=== PATIENT | female | born 1975 | race Caucasian/White ===

== ENCOUNTER → 2020-03-26 | Outpatient (CLI) | payer BC, OTHER ==
[~2020-03-26] MED LIST: ACTOS TAB 15MG15 MG PO; ACTOS15 MG PO; ASPIRIN CHEWABL81 MG PO; B-121000 MC1 PO; CARAFATE1 GM/10 ML PO; CYTOMEL5 MCG PO; FAMOTIDINE40 MG PO; FERREX 150150 MG PO; IRON INFUSIONS IV; KLONOPIN TAB 00.5 MG PO; LINZESS PO; LINZESS72 MCG PO; LODINE CAP 300300 MG PO; MAGNESIUM500 MG PO; NAPROSYN500 MG PO; NITROSTAT0.4 MG SL; NORCO 7.5-3251 EACH PO; NORVASC2.5 MG PO; OMNICEF 300 MG300 MG PO; SYNTHROID175 MCG PO; TOPROL XL25 MG PO; TRULICITY0.75 MG/0. SQ; VIT B PO; VIT D PO; VIT D3 PO; VITAMIN B-121000 MCG PO; VITAMIN D 11000 UNIT PO; ZANTAC150 MG PO; ZANTAC300 MG PO; ZOFRAN4 MG PO; ZOFRAN8 MG PO
== END ==
LOC: MRI 15:42
DX: M50.122 Cervical disc disorder at C5-C6 level with radiculopathy (principal)
CPT/HCPCS: 72141

== ENCOUNTER → 2020-05-24 | Day surgery (SDC) | payer BC, OTHER | END | disposition home or self-care (01) | LOC: OR 11:06 | DX: K63.5 Polyp of colon (principal); K62.1 Rectal polyp; K64.0 First degree hemorrhoids; K64.4 Residual hemorrhoidal skin tags; K29.50 Unspecified chronic gastritis without bleeding; K31.7 Polyp of stomach and duodenum; K21.00 Gastro-esophageal reflux disease with esophagitis, without bleeding; K58.1 Irritable bowel syndrome with constipation; E89.0 Postprocedural hypothyroidism; E11.9 Type 2 diabetes mellitus without complications; E66.01 Morbid (severe) obesity due to excess calories; Z68.43 Body mass index [BMI] 50.0-59.9, adult; Z88.0 Allergy status to penicillin; Z88.2 Allergy status to sulfonamides; Z88.1 Allergy status to other antibiotic agents; Z79.84 Long term (current) use of oral hypoglycemic drugs; Z79.899 Other long term (current) drug therapy | CPT/HCPCS: J2405; J2704; J3010; J7040 ==

== ENCOUNTER 2020-06-09 04:35 | Emergency (ER) | payer BC, OTHER ==
[~2020-06-09 04:35] MED LIST changes: -OMNICEF 300 MG300 MG PO
[2020-06-09 05:51] LABS: HEMOGLOBIN 13.4 gm/dl (12.3-15.3); RED BLOOD COUNT 4.6 M/UL (4.00-5.10)
[2020-06-09 06:11] LABS: BUN/CREATININE RATIO 16 (0-10)
[2020-06-09] MEDS ORDERED: OMNICEF 300 MG300 MG PO (07:45)
== END 2020-06-09 08:20 | disposition home or self-care (01) ==
LOC: ER1 04:35
PROVIDERS: Emergency Medicine
DX: N39.0 Urinary tract infection, site not specified (principal); Z20.822 Contact with and (suspected) exposure to COVID-19
CPT/HCPCS: 0240U; 71046; 80053; 81001; 83690; 85025; 87086; 96374; 99284

== ENCOUNTER → 2020-06-28 | Outpatient (CLI) | payer BC, OTHER ==
[~2020-06-28] MED LIST changes: +HYDROXYCHLOROQ200 MG PO; +OMNICEF 300 MG300 MG PO
== END ==
LOC: MAMO 04-05 11:30
DX: N63.0 Unspecified lump in unspecified breast (principal)
CPT/HCPCS: 77066; G0279

== ENCOUNTER → 2020-07-23 | Outpatient (CLI) | payer BC, OTHER ==
[2020-07-23 09:09] LABS: HEMOGLOBIN 14.1 gm/dl (12.3-15.3); RED BLOOD COUNT 4.7 M/UL (4.00-5.10); WHITE BLOOD COUNT 6.3 K/UL (4.5-11.0)
[2020-07-23 10:19] LABS: BUN/CREATININE RATIO 15 (0-10)
[2020-07-24 08:14] LABS: SARS COV-2 IGG AB Negative (Negative)
[2020-07-24 09:14] LABS: VITAMIN D, 25-HYDROXY 73.5 ng/mL (30.0-100.0)
[2020-07-24 11:15] LABS: CREATININE, URINE 195.2 mg/dL (Not Estab.)
== END ==
LOC: CT 07:41
PROVIDERS: Nurse Practitioner Family
DX: E11.9 Type 2 diabetes mellitus without complications (principal); M25.50 Pain in unspecified joint; M54.12 Radiculopathy, cervical region; R10.13 Epigastric pain; R13.10 Dysphagia, unspecified; R53.83 Other fatigue; Z00.00 Encounter for general adult medical examination without abnormal findings; E78.5 Hyperlipidemia, unspecified; E53.8 Deficiency of other specified B group vitamins; E55.9 Vitamin D deficiency, unspecified; Z20.822 Contact with and (suspected) exposure to COVID-19
CPT/HCPCS: 36415; 71260; 80053; 80061; 82043; 82570; 82607; 83036; 84439; 84443; 85025; 86769; Q9967

== ENCOUNTER 2020-09-06 04:01 | Emergency (ER) | payer BC ==
[~2020-09-06 04:01] MED LIST changes: -HYDROXYCHLOROQ200 MG PO
[2020-09-06 05:19] LABS: HEMOGLOBIN 14.4 gm/dl (12.3-15.3); RED BLOOD COUNT 4.76 M/UL (4.00-5.10); WHITE BLOOD COUNT 8.8 K/UL (4.5-11.0)
[2020-09-06 05:36] LABS: BUN/CREATININE RATIO 13 (0-10)
== END 2020-09-06 07:00 | disposition home or self-care (01) ==
LOC: ER1 04:01
PROVIDERS: Emergency Medicine
DX: B34.9 Viral infection, unspecified (principal); Z20.822 Contact with and (suspected) exposure to COVID-19
CPT/HCPCS: 80053; 85025; 87081; 87880; 96374; 99283; J1100; J1885; U0002

== ENCOUNTER 2020-09-20 22:55 | Emergency (ER) | payer BC ==
[~2020-09-20] VITALS: Ht 170.2 cm; Wt 133.8 kg
[2020-09-21 00:25] LABS: HEMOGLOBIN 15.2 gm/dl (12.3-15.3); RED BLOOD COUNT 5.05 M/UL (4.00-5.10); WHITE BLOOD COUNT 10.6 K/UL (4.5-11.0)
[2020-09-21 00:51] LABS: BUN/CREATININE RATIO 19 (0-10)
[2020-09-21] MEDS ORDERED: HYDROXYCHLOROQ200 MG PO (04:08)
== END 2020-09-21 04:45 | disposition home or self-care (01) ==
LOC: ER1 22:55
PROVIDERS: Family Medicine
DX: Z23 Encounter for immunization (principal); U07.1 COVID-19; E66.01 Morbid (severe) obesity due to excess calories; E11.9 Type 2 diabetes mellitus without complications; Z90.49 Acquired absence of other specified parts of digestive tract; Z90.710 Acquired absence of both cervix and uterus; Z88.0 Allergy status to penicillin; Z88.2 Allergy status to sulfonamides; Z88.1 Allergy status to other antibiotic agents; Z79.899 Other long term (current) drug therapy
CPT/HCPCS: 0240U; 71045; 80053; 82550; 82553; 83605; 83874; 83880; 84484; 85025; 87040; 93005; 96374; 99284; J2405; J7030; M0243

== ENCOUNTER → 2020-10-12 | Outpatient (CLI) | payer BC ==
[~2020-10-12] MED LIST changes: +HYDROXYCHLOROQ200 MG PO
== END ==
LOC: RAD 11:09
DX: U07.1 COVID-19 (principal)
CPT/HCPCS: 71046

== ENCOUNTER → 2020-10-15 | Outpatient (CLI) | payer BC ==
[2020-10-15 15:47] LABS: HEMOGLOBIN 12.4 gm/dl (12.3-15.3); RED BLOOD COUNT 4.17 M/UL (4.00-5.10); WHITE BLOOD COUNT 6.8 K/UL (4.5-11.0)
[2020-10-15 16:13] LABS: BUN/CREATININE RATIO 16 (0-10)
== END ==
LOC: OPSV 12:00
PROVIDERS: Nurse Practitioner Family
DX: U07.1 COVID-19 (principal); R05 Cough; M25.50 Pain in unspecified joint; E86.0 Dehydration; R11.2 Nausea with vomiting, unspecified
CPT/HCPCS: 36415; 80053; 82150; 83690; 85025; 85652; 96360; 96361; J7030

== ENCOUNTER → 2021-03-05 | Outpatient (CLI) | payer BC ==
[2021-03-05 08:17] LABS: RED BLOOD COUNT 4.7 M/UL (4.00-5.10); WHITE BLOOD COUNT 7.2 K/UL (4.5-11.0)
[2021-03-05 08:42] LABS: BUN/CREATININE RATIO 17 (0-10)
[2021-03-06 07:11] LABS: CREATININE, URINE 253.4 mg/dL (Not Estab.)
[2021-03-06 07:11] LABS: VITAMIN D, 25-HYDROXY 66.2 ng/mL (30.0-100.0)
[2021-03-06 10:13] LABS: ANTISTREPTOLYSIN O AB 245.7 IU/mL (0.0-200.0); ESTRADIOL 48.2 pg/mL (.); FSH 4.9 mIU/mL (.); LUTEINIZING HORMONE(LH) 6.1 mIU/mL (.); PROLACTIN 22.4 ng/mL (4.8-23.3); RHEUMATOID ARTHRITIS FACTOR <10.0 IU/mL (<14.0)
== END ==
LOC: LAB 07:43
PROVIDERS: Nurse Practitioner Family
DX: E11.9 Type 2 diabetes mellitus without complications (principal); M25.50 Pain in unspecified joint; M54.12 Radiculopathy, cervical region; R10.13 Epigastric pain; R13.10 Dysphagia, unspecified; R53.83 Other fatigue; Z00.00 Encounter for general adult medical examination without abnormal findings; E53.8 Deficiency of other specified B group vitamins; E78.5 Hyperlipidemia, unspecified; E55.9 Vitamin D deficiency, unspecified
CPT/HCPCS: 36415; 80053; 80061; 82043; 82570; 82607; 82670; 83001; 83002; 83036; 84146; 84402; 84403; 84439; 84443; 84550; 85025; 85652; 86038; 86060; 86141; 86431

== ENCOUNTER → 2021-05-27 | Outpatient (CLI) | payer BC | LOC: CT 05-26 15:00 → KOH-I 05-29 13:00 | DX: D86.1 Sarcoidosis of lymph nodes (principal); R59.0 Localized enlarged lymph nodes; R06.02 Shortness of breath | CPT/HCPCS: 71260; 82565; Q9967 ==

== ENCOUNTER → 2021-10-10 | Outpatient (CLI) | payer BC ==
[2021-10-10 08:11] LABS: HEMOGLOBIN 13.4 gm/dl (12.3-15.3); RED BLOOD COUNT 4.57 M/UL (4.00-5.10); WHITE BLOOD COUNT 4.9 K/UL (4.5-11.0)
[2021-10-10 08:36] LABS: BUN/CREATININE RATIO 14 (0-10)
[2021-10-11 07:10] LABS: VITAMIN D, 25-HYDROXY 86.5 ng/mL (30.0-100.0)
[2021-10-11 10:13] LABS: CREATININE, URINE 188.9 mg/dL (Not Estab.)
== END ==
LOC: LAB 07:27
PROVIDERS: Nurse Practitioner Family
DX: E11.9 Type 2 diabetes mellitus without complications (principal); M25.50 Pain in unspecified joint; J30.9 Allergic rhinitis, unspecified; R53.82 Chronic fatigue, unspecified; K59.00 Constipation, unspecified; E78.5 Hyperlipidemia, unspecified; E53.8 Deficiency of other specified B group vitamins; R30.0 Dysuria
CPT/HCPCS: 36415; 80053; 80061; 81001; 82043; 82164; 82570; 82607; 83036; 84439; 84443; 85025; 86060

== ENCOUNTER → 2021-10-16 | Outpatient (CLI) | payer BC | LOC: RAD 09:45 | DX: R31.9 Hematuria, unspecified (principal); R06.02 Shortness of breath | CPT/HCPCS: 71046; 74018 ==

== ENCOUNTER → 2021-11-25 | Outpatient (CLI) | payer BC | LOC: MAMO 11-14 08:30 | DX: Z12.31 Encounter for screening mammogram for malignant neoplasm of breast (principal) | CPT/HCPCS: 77063; 77067 ==